=== PATIENT | male | born 1965 | race Caucasian/White ===

== ENCOUNTER 2017-04-14 01:35 | Inpatient (IN) | payer SELFPAY ==
--- NOTE | 2017-04-14 01:52 | PDOC ---
History of Present Illness - General Chief Complaint: Nausea/Vomiting Stated Complaint: NAUSEA, VOMITING Time Seen by Provider: 04/14/17 01:40 - History of Present Illness Initial Comments: 04/14/17 02:23 42-year-old male complaining nausea, vomiting, bloody stool 1 episode prior to arrival. Patient reports today has been feeling dizzy, and nausea. Patient reports he has a history of anemia (hemoglobin last 6), CVA 2016, htn, Hemorrhoids and hypercholesterolemia. Patient reports taking aspirin every day. patient reports tarry stools since starting iron tablets 2 months ago. patient denies chest pain, shortness of breath and fever. denies alcohol intake. Past History - Travel Traveled outside of the country in the last 30 days: Yes Close contact w/someone who was outside of country & ill: No - Past Medical History Allergies/Adverse Reactions: Allergies Allergy/AdvReac Type Severity Reaction Status Date / Time No Known Drug Allergies Allergy Verified 04/14/17 01:44 shrimp Allergy "VOMITING" Verified 04/14/17 01:44 Home Medications: Ambulatory Orders Aspirin [ASA -] 325 mg PO DAILY #30 tablet 06/24/16 Atorvastatin Ca [Lipitor] 80 mg PO HS #60 tablet 06/24/16 Isosorbide Mononitrate [Imdur -] 30 mg PO DAILY #30 tab.sr.24h 06/24/16 Nifedipine ER [Procardia XL -] 90 mg PO DAILY #30 tab.er.24 06/24/16 Ramipril [Altace] 20 mg PO DAILY #60 capsule 06/24/16 Labetalol HCl 100 mg PO TID #90 tablet 07/25/16 Carvedilol 25 mg PO BID 09/17/16 CVA: Yes (RT LEG SL WEAKNESS (3MONTHS AGO)) HTN: Yes Hypercholesterolemia: Yes Other medical history: hemorrhoids - Psycho/Social/Smoking Cessation Hx Anxiety: No Suicidal Ideation: No Smoking History: Never smoked Hx Alcohol Use: No Drug/Substance Use Hx: No Substance Use Type: None Hx Substance Use Treatment: No Review of Systems - Review of Systems Able to Perform ROS?: Yes Is the patient limited Maltese proficient: No Constitutional: Yes: Weakness ABD/GI: Yes: Blood Streaked Bowels, Diarrhea, Nausea, Vomiting, Tarry Stools. No: Symptoms Reported, See HPI, Abdominal Distended, Abd. Pain w/ defecation, Constipated, Difficulty Swallowing, Poor Appetite, Poor Fluid Intake, Rectal Bleeding, Indigestion, Abdominal cramping, Other : No: Symptoms Reported, See HPI, Burning, Dysuria, Discharge, Frequency, Flank Pain, Hematuria, Incontinence, Pain, Urgency, Testicular Mass, Testicular Swelling, Lesions, Testicular Pain, Other Musculoskeletal: No: Symptoms Reported, See HPI, Back Pain, Gout, Joint Pain, Joint Swelling, Muscle Pain, Muscle Weakness, Neck Pain, Joint Stiffness, Other *Physical Exam - Vital Signs 04/14/17 02:28 Last Vital Signs Temp Pulse Resp BP Pulse Ox 98.0 F 81 14 118/67 99 04/14/17 02:00 04/14/17 02:00 04/14/17 02:00 04/14/17 02:00 04/14/17 02:00 - Physical Exam General Appearance: Yes: Appropriately Dressed, Other (pale) Respiratory/Chest: positive: Lungs Clear, Normal Breath Sounds Cardiovascular: positive: Regular Rhythm, Regular Rate, Murmur Gastrointestinal/Abdominal: positive: Normal Bowel Sounds, Soft. 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 P: cbc cmp ferrsous type and screen IVF Medical Decision Making - Critical Care Time Total Critical Care Time (minutes): 90 Critical Care Statement: The care of this patient involved high complexity decision making to prevent further life threatening deterioration of the patient 's condition and/or to evalute & treat vital organ system(s) failure or risk of failure. - Medical Decision Making 04/14/17 03:03 Patient syncopal episode X1 in xray. vomited copious amount clotting blood. 04/14/17 03:56 Patient is pending admission for further management of GI bleed. Patient signed out to Dr. Watson (resident) / Dr. garcia. ICU accepted admission by Araceli Dumont. 04/14/17 03:57 Dr. Benavides (GI) paged. 04/14/17 04:[address] Benavides. recommends. abdominal US 2 units FFP Protonix drip Sandostatin 15 mcg X1 Sandostatin 50mcg/hr drip *DC/Admit/Observation/Transfer Diagnosis at time of Disposition: Gastrointestinal hemorrhage Qualifiers: GI bleed type/associated pathology: unspecified gastrointestinal hemorrhage type Qualified Code(s): K92.2 - Gastrointestinal hemorrhage, unspecified - Discharge Dispostion Admit: Yes - Referrals Referrals: Antonio Kevin MD [Primary Care Provider] -
[2017-04-14] MEDS ORDERED: SODIUM CHLORIDE 1,000 ML IV STA (02:07)
[2017-04-14 02:52] LABS: BASOPHIL 0.3 % (0-2.0); MCH 26.7 pg (25.7-33.7); MEAN CELL VOLUME 80.9 fl (80-96); MEAN PLT VOLUME 9.7 fl (7.5-11.1); PLATELET COUNT 169 K/MM3 (134-434); RDW 21.6 % (11.9-15.9); WHITE BLOOD COUNT 10.5 K/mm3 (4.0-10.0)
[2017-04-14] MEDS ORDERED: PANTOPRAZOLE SODIUM 40 MG in SODIUM CHLORIDE 100 ML IVPB ONE (03:00)
[2017-04-14 03:05] LABS: INR 1.62 (0.82-1.09)
[2017-04-14] MEDS ORDERED: PANTOPRAZOLE SODIUM 100 ML IVPB ONE (03:07)
[2017-04-14 03:16] LABS: ALBUMIN 2.3 g/dl (3.4-5.0); ANION GAP 7 (8-16); BILIRUBIN,TOTAL 0.4 mg/dL (0.2-1.0); CALCIUM 7.3 mg/dL (8.5-10.1); CO2 26 mmol/L (21-32); CREATININE 1.4 mg/dL (0.7-1.3); GLUCOSE,RANDOM 109 mg/dL (74-106); SGOT/AST 251 U/L (15-37); TOT PROT 4.5 g/dl (6.4-8.2)
[2017-04-14 03:17] LABS: ALK PHOS 67 U/L (45-117); TROPONIN I 0.02 ng/ml (0.00-0.05)
[2017-04-14 03:23] LABS: SGPT/ALT 401 U/L (12-78)
--- NOTE | 2017-04-14 03:54 | PN ---
Teaching Attending Note Name of Resident: Lilly Romero ATTENDING PHYSICIAN STATEMENT I saw and evaluated the patient. I reviewed the resident's note and discussed the case with the resident. I agree with the resident's findings and plan as documented. SUBJECTIVE: 51 yo M with pmhx of left thalamic stroke (16') and HTN who presents with vomiting and bloody stool. States he takes ASA daily and has noticed "dark" stools since taking iron. Of note pt. vomited blood clots as per ED and syncopized in ED. Pt. states that he vomited and had diarrhea, the vomit was red blood with clots and the diarrhea was dark black. OBJECTIVE: Physical: VS: Vital Signs Period Temp Pulse Resp BP Sys/Jaquez Pulse Ox Last 24 Hr 98.0 F 81 14 118/67 99 GEN: NAD, Resting in bed HEENT: NCAT, PERRL CARD: RRR S1, S2 KATEY II/ RESP: CTAB ABD: BS X4, NTD to palpation EXT: - C/C/E CBCD WBC 10.5 K/mm3 (4.0-10.0) H 04/14/17 02:36 RBC 2.04 M/mm3 (4.00-5.60) L D 04/14/17 02:36 Hgb 5.5 GM/dL (11.7-16.9) L* D 04/14/17 02:36 Hct 16.5 % (35.4-49) L D 04/14/17 02:36 MCV 80.9 fl (80-96) 04/14/17 02:36 MCHC 33.0 g/dl (32.0-35.9) 04/14/17 02:36 RDW 21.6 % (11.9-15.9) H D 04/14/17 02:36 Plt Count 169 K/MM3 (134-434) D 04/14/17 02:36 MPV 9.7 fl (7.5-11.1) D 04/14/17 02:36 CMP Sodium 141 mmol/L (136-145) 04/14/17 02:36 Potassium 4.2 mmol/L (3.5-5.1) 04/14/17 02:36 Chloride 108 mmol/L (98-107) H 04/14/17 02:36 Carbon Dioxide 26 mmol/L (21-32) 04/14/17 02:36 Anion Gap 7 (8-16) L 04/14/17 02:36 BUN 71 mg/dL (7-18) H D 04/14/17 02:36 Creatinine 1.4 mg/dL (0.7-1.3) H 04/14/17 02:36 Creat Clearance w eGFR 53.86 (>60) 04/14/17 02:36 Random Glucose 109 mg/dL (74-106) H 04/14/17 02:36 Calcium 7.3 mg/dL (8.5-10.1) L D 04/14/17 02:36 Total Bilirubin 0.4 mg/dL (0.2-1.0) 04/14/17 02:36 AST 251 U/L (15-37) H D 04/14/17 02:36 ALT 401 U/L (12-78) H D 04/14/17 02:36 Alkaline Phosphatase 67 U/L (45-117) D 04/14/17 02:36 Total Protein 4.5 g/dl (6.4-8.2) L D 04/14/17 02:36 Albumin 2.3 g/dl (3.4-5.0) L D 04/14/17 02:36 CARDIAC ENZYMES Creatine Kinase 57 IU/L (39-308) 04/14/17 02:36 Troponin I 0.02 ng/ml (0.00-0.05) 04/14/17 02:36 EKG: NSR no acute St-T changes CXR: Cardiomegaly Ambulatory Orders Aspirin [ASA -] 325 mg PO DAILY #30 tablet 06/24/16 Atorvastatin Ca [Lipitor] 80 mg PO HS #60 tablet 06/24/16 Isosorbide Mononitrate [Imdur -] 30 mg PO DAILY #30 tab.sr.24h 06/24/16 Nifedipine ER [Procardia XL -] 90 mg PO DAILY #30 tab.er.24 06/24/16 Ramipril [Altace] 20 mg PO DAILY #60 capsule 06/24/16 Labetalol HCl 100 mg PO TID #90 tablet 07/25/16 Carvedilol 25 mg PO BID 09/17/16 Place in ICU CC time 40 minutes ASSESSMENT AND PLAN: 51 M with pmhx of CVA and HTN presents with hematemsis and dark stools, found to be stool occult positive and to have anemia, will be admitted for GI bleed. 1.) GI Bleed Upper - Sandostatin Bolus and Drip - FFP 2U increased inr - PPI gtt - NPO - PRBC keep Hgb >7.0 - Type and Screen - GI consulted and reccomendations taken - 2 Large Bore IVs 2.) Transaminitis /inc. INR - FFP - Abdominal US - Hepatitis panel 3.) Anemia, normocytic - 2 U prbcs - FU Iron studies 4.) CVA - Hold ASA - Hold Statin 5.) HTN - Hold BP meds for now 6.) Dvt PPx - Low Risk SCDs CC TIME 45 minutes Admit to ICU, Case discussed with tunnel man
[2017-04-14] MEDS ORDERED: OCTREOTIDE ACETATE 50 MCG/1 ML - 1 ML VIAL IVPUSH ONE (04:28)
[2017-04-14] MEDS ORDERED: OCTREOTIDE ACETATE 1,200 MCG in DEXTROSE 5%-WATER - 488 ML IVPB SCH (04:30)
[2017-04-14] MEDS: PANTOPRAZOLE SODIUM 80 MG in SODIUM CHLORIDE 100 ML IVPB SCH ×2 (05:00→14:30)
--- NOTE | 2017-04-14 05:07 | HP ---
HISTORY OF PRESENT ILLNESS: Patient is a 51 year old male with a PMHx of uncontrolled HTN (on 5 medications ) left thalmic stroke (2015) who presented after vomiting a large amount of dark blood with an episode of dark bloody stool at the same time, both described as the color black. In the ED patient had one episode of bright red bloody vomit with clots and then syncopized right after. Patient reports daily aspirin use since his stroke last year but denies any NSAID use. Patient never had similar episodes in the past and never had an EGD or colonoscopy. Otherwise , patient denies fever, chills, abdominal pain, chest pain, palpitations, shortness of breath, headache. PHYSICAL EXAMINATION Vital Signs - 24 hr 04/14/17 04/14/17 02:00 03:57 Temperature 98.0 F 98.4 F Pulse Rate 81 Pulse Rate [ 80 Apical] Respiratory 14 20 Rate Blood Pressure 118/67 Blood Pressure 117/69 [Right Arm] O2 Sat by Pulse 99 99 Oximetry (%) GENERAL: Awake, alert, and fully oriented, in no acute distress. EYES: Conjunctival pallor. EARS, NOSE, THROAT: Moist mucous membranes. LUNGS: Breath sounds equal, clear to auscultation bilaterally. No wheezes, and no crackles. No accessory muscle use. HEART: Regular rate and rhythm, normal S1 and S2 without murmur, rub or gallop. ABDOMEN: Soft, nontender, not distended, normoactive bowel sounds, no guarding, no rebound, no masses. No hepatomegaly or splenomegaly. LOWER EXTREMITIES: No peripheral edema. Laboratory Results - last 24 hr 04/14/17 04/14/17 04/14/17 02:15 02:36 02:36 WBC 10.5 H RBC 2.04 L D Hgb 5.5 L* D Hct 16.5 L D MCV 80.9 MCH 26.7 MCHC 33.0 RDW 21.6 H D Plt Count 169 D MPV 9.7 D Neutrophils % 76.0 Lymphocytes % 15.5 D Monocytes % 7.2 D Eosinophils % 1.0 Basophils % 0.3 Retic Count 1.31 INR 1.62 H D Sodium Potassium Chloride Carbon Dioxide Anion Gap BUN Creatinine Creat Clearance w eGFR Random Glucose Calcium Total Bilirubin AST ALT Alkaline Phosphatase Creatine Kinase Troponin I Total Protein Albumin Stool Occult Blood Positive Blood Type Antibody Screen Crossmatch 04/14/17 04/14/17 04/14/17 02:36 02:36 02:36 WBC RBC Hgb Hct MCV MCH MCHC RDW Plt Count MPV Neutrophils % Lymphocytes % Monocytes % Eosinophils % Basophils % Retic Count INR Sodium 141 Potassium 4.2 Chloride 108 H Carbon Dioxide 26 Anion Gap 7 L BUN 71 H D Creatinine 1.4 H Creat Clearance w eGFR 53.86 Random Glucose 109 H Calcium 7.3 L D Total Bilirubin 0.4 AST 251 H D ALT 401 H D Alkaline Phosphatase 67 D Creatine Kinase 57 Troponin I 0.02 Total Protein 4.5 L D Albumin 2.3 L D Stool Occult Blood Blood Type O POSITIVE Antibody Screen Negative Crossmatch See Detail 04/14/17 03:25 WBC RBC Hgb Hct MCV MCH MCHC RDW Plt Count MPV Neutrophils % Lymphocytes % Monocytes % Eosinophils % Basophils % Retic Count INR Sodium Potassium Chloride Carbon Dioxide Anion Gap BUN Creatinine Creat Clearance w eGFR Random Glucose Calcium Total Bilirubin AST ALT Alkaline Phosphatase Creatine Kinase Troponin I Total Protein Albumin Stool Occult Blood Blood Type O POSITIVE Antibody Screen Negative Crossmatch Chest X-ray (04/14/17): Cardiomegaly. No acute pathology ASSESSMENT/PLAN: Patient is a 51 year old male with a PMHx of uncontrolled HTN (on 5 medications ) left thalmic stroke (2015) who was brought in for dark bloody vomit and stool. In the ED patient had an episode of bright red vomit with clots. Patient admitted for further monitoring and management. GI BLEED -Likely upper. Will need EGD/Colonoscopy -Type and screen, coags, type and screen -2 FFP as patients INR is elevated -Octeotride bolus and drip ordered -Protonix drip -2 large bore IV's -Hold any antiplatelets or anticoagulations -NPO -GI consult placed and recommendations appreciated Normocytic Anemia -2 units PRBC ordered -Iron studies sent Transaminitis -Abdominal U/S ordered -Hepatitis Panel ordered History of CVA (2016) -Hold Aspirin and Statin HTN -Hold meds due to hypotension Prophylaxis -SCD's for DVT -Protonix drip for GI Disposition -Full code -Admit to Med/Surg. Awaiting GI Visit type - Emergency Visit Emergency Visit: Yes ED Registration Date: 04/14/17 Care time: The patient presented to the Emergency Department on the above date and was hospitalized for further evaluation of their emergent condition. - New Patient This patient is new to me today: Yes Date on this admission: 04/14/17 - Critical Care Critical Care patient: No
--- NOTE | 2017-04-14 05:09 | HP ---
CHIEF COMPLAINT: nausea and vomiting of blood . PCP: HISTORY OF PRESENT ILLNESS: 42 year old male with PMH of HTN, HLD, anemia, stroke(9 months ago), asthma, hemorrhoids who presented to the ED with nausea and vomiting of huge amount of ground coffee blood that started suddenly last night around 9 am associated with maroon blood in the stool. Patient reports one week history of fatigue, lightheadedness, dizziness. He complains of constipation due to iron intake. Patient reports taking aspirin 325 mg daily since the stroke.He reports swelling in his legs for the past week, chronic history of back pain but not on any NSAIDS.He denies use of ETOH He denies any abdominal pain, chest pain, SOB, palpitation, cough, headache, or any urinary symptoms. IN the Ed patient had another episode of bright red bloody vomit and he fainted after that. ER course was notable for: (1) EKG , NSR (2) CXR cardiomegaly (3)2 episode of vomiting blood with syncope. Recent Travel:NO PAST MEDICAL HISTORY: HTN, HLD, anemia, stroke(9 months ago), asthma, hemorrhoids PAST SURGICAL HISTORY:None Social History: Smoking:None Alcohol: quit one years ago after the stoke, used to drink 1-2 beers. Drugs: None Family History: Allergies No Known Drug Allergies Allergy (Verified 04/14/17 01:44) shrimp Allergy (Verified 04/14/17 01:44) "VOMITING" HOME MEDICATIONS: Home Medications Medication Instructions Recorded Aspirin [ASA -] 325 mg PO DAILY #30 tablet 06/24/16 Atorvastatin Ca [Lipitor] 80 mg PO HS #60 tablet 06/24/16 Isosorbide Mononitrate [Imdur -] 30 mg PO DAILY #30 tab.sr.24h 06/24/16 Nifedipine ER [Procardia XL -] 90 mg PO DAILY #30 tab.er.24 06/24/16 Ramipril [Altace] 20 mg PO DAILY #60 capsule 06/24/16 Labetalol HCl 100 mg PO TID #90 tablet 07/25/16 Carvedilol 25 mg PO BID 09/17/16 Current Medications Generic Name Dose Route Start Last Admin Trade Name Freq PRN Reason Stop Dose Admin Chlorhexidine Gluconate 1 applic 04/14/17 22:00 Hibiclens For Decolonization - TP HS MARIA DOLORES Pantoprazole Sodium 80 mg/ 100 mls @ 10 mls/hr 04/14/17 04:00 04/14/17 05:00 Sodium Chloride IVPB 10 mls/hr Q10H MARIA DOLORES Administration 8 MG/HR Octreotide Acetate 1,200 mcg/ 500 mls @ 20.83 mls/hr 04/14/17 04:30 04/14/17 05 :25 Dextrose IVPB 20.83 mls/hr ASDIR MARIA DOLORES Administration 50 MCG/HR Mupirocin 1 applic 04/14/17 10:00 Bactroban Ointment (For Decolonization) - NS 04/19/17 09:59 BID MARIA DOLORES REVIEW OF SYSTEMS CONSTITUTIONAL: Absent: fever, chills, diaphoresis, generalized weakness, malaise, loss of appetite, weight change HEENT: Absent: rhinorrhea, nasal congestion, throat pain, throat swelling, difficulty swallowing, mouth swelling, ear pain, eye pain, visual changes CARDIOVASCULAR: Absent: chest pain, syncope, palpitations, irregular heart rate, lightheadedness , peripheral edema RESPIRATORY: Absent: cough, shortness of breath, dyspnea with exertion, orthopnea, wheezing, stridor, hemoptysis GASTROINTESTINAL: Absent: abdominal pain, abdominal distension, nausea, vomiting, diarrhea, constipation, melena, hematochezia GENITOURINARY: Absent: dysuria, frequency, urgency, hesitancy, hematuria, flank pain, genital pain MUSCULOSKELETAL: Absent: myalgia, arthralgia, joint swelling, back pain, neck pain SKIN: Absent: rash, itching, pallor HEMATOLOGIC/IMMUNOLOGIC: Absent: easy bleeding, easy bruising, lymphadenopathy, frequent infections ENDOCRINE: Absent: unexplained weight gain, unexplained weight loss, heat intolerance, cold intolerance NEUROLOGIC: Absent: headache, focal weakness or paresthesias, dizziness, unsteady gait, seizure, mental status changes, bladder or bowel incontinence PSYCHIATRIC: Absent: anxiety, depression, suicidal or homicidal ideation, hallucinations. PHYSICAL EXAMINATION Vital Signs - 24 hr 04/14/17 04/14/17 02:00 03:57 Temperature 98.0 F 98.4 F Pulse Rate 81 Pulse Rate [ 80 Apical] Respiratory 14 20 Rate Blood Pressure 118/67 Blood Pressure 117/69 [Right Arm] O2 Sat by Pulse 99 99 Oximetry (%) GENERAL: Awake, alert, and fully oriented, in no acute distress. HEAD: Normal with no signs of trauma. EYES: Pupils equal, round and reactive to light, extraocular movements intact, sclera anicteric, conjunctiva clear. No lid lag. EARS, NOSE, THROAT: Ears normal, nares patent, oropharynx clear without exudates. Moist mucous membranes. NECK: Normal range of motion, supple without lymphadenopathy, JVD, or masses. LUNGS: Breath sounds equal, clear to auscultation bilaterally. No wheezes, and no crackles. No accessory muscle use. HEART: Regular rate and rhythm, normal S1 and S2 without murmur, rub or gallop. ABDOMEN: Soft, nontender, not distended, normoactive bowel sounds, no guarding, no rebound, no masses. No hepatomegaly or splenomegaly. MUSCULOSKELETAL: Normal range of motion at all joints. No bony deformities or tenderness. No CVA tenderness. UPPER EXTREMITIES: 2+ pulses, warm, well-perfused. No cyanosis. No clubbing. No peripheral edema. LOWER EXTREMITIES: 2+ pulses, warm, well-perfused. No calf tenderness. No peripheral edema. NEUROLOGICAL: Cranial nerves II-XII intact. Normal speech. PSYCHIATRIC: Cooperative. Good eye contact. Appropriate mood and affect. SKIN: Warm, dry, normal turgor, no rashes or lesions noted, normal capillary refill. Laboratory Results - last 24 hr 04/14/17 04/14/17 04/14/17 02:15 02:36 02:36 WBC 10.5 H RBC 2.04 L D Hgb 5.5 L* D Hct 16.5 L D MCV 80.9 MCH 26.7 MCHC 33.0 RDW 21.6 H D Plt Count 169 D MPV 9.7 D Neutrophils % 76.0 Lymphocytes % 15.5 D Monocytes % 7.2 D Eosinophils % 1.0 Basophils % 0.3 Retic Count 1.31 INR 1.62 H D Sodium Potassium Chloride Carbon Dioxide Anion Gap BUN Creatinine Creat Clearance w eGFR Random Glucose Calcium Total Bilirubin AST ALT Alkaline Phosphatase Creatine Kinase Troponin I Total Protein Albumin Stool Occult Blood Positive Blood Type Antibody Screen Crossmatch 04/14/17 04/14/17 04/14/17 02:36 02:36 02:36 WBC RBC Hgb Hct MCV MCH MCHC RDW Plt Count MPV Neutrophils % Lymphocytes % Monocytes % Eosinophils % Basophils % Retic Count INR Sodium 141 Potassium 4.2 Chloride 108 H Carbon Dioxide 26 Anion Gap 7 L BUN 71 H D Creatinine 1.4 H Creat Clearance w eGFR 53.86 Random Glucose 109 H Calcium 7.3 L D Total Bilirubin 0.4 AST 251 H D ALT 401 H D Alkaline Phosphatase 67 D Creatine Kinase 57 Troponin I 0.02 Total Protein 4.5 L D Albumin 2.3 L D Stool Occult Blood Blood Type O POSITIVE Antibody Screen Negative Crossmatch See Detail 04/14/17 03:25 WBC RBC Hgb Hct MCV MCH MCHC RDW Plt Count MPV Neutrophils % Lymphocytes % Monocytes % Eosinophils % Basophils % Retic Count INR Sodium Potassium Chloride Carbon Dioxide Anion Gap BUN Creatinine Creat Clearance w eGFR Random Glucose Calcium Total Bilirubin AST ALT Alkaline Phosphatase Creatine Kinase Troponin I Total Protein Albumin Stool Occult Blood Blood Type O POSITIVE Antibody Screen Negative Crossmatch ASSESSMENT/PLAN: 42 year old male with PMH of HTN, HLD, anemia, stroke(9 months ago), asthma, hemorrhoids who presented to the ED with nausea and vomiting of huge amount of ground coffee blood(hematemesis) and dark stools, found to have a positive occult blood and anemia, he was admitted for GI bleed evaluation and treatment. #GI bleed most likely upper * Sandostatin Bolus and Drip * Octreotide till varices rulled out * FFP 2U due to increased INR * NPO * 2 units PRBC keep Hgb >7.0 * FFP, Vit K to correct INR * Type and Screen, coagulations * GI consult * 2 Large Bore IVs * EGD within 24 hours * Protonix drip * Serial CBC, Coag # Transaminitis * AST 251/ALT 401 * Abdominal US * Hepatitis panel * FFP , vit K * Repeat CMP # Anemia, normocytic likely 2/2 GI bleed * H/H 5.5/16.5 * Iron studies * transfuse 2 units PRBC * F/U H/H * repeat CBC, CMP after transfusion * * # AKD likely 2/2 hypovolemia * Cr 1.4 * repeat after transfusion # HTN * Hold home meds due to low BP * F/U BP * restart home meds for bp >140/90 * * # H/O CVA 2015 * left thalamic stoke * Hold statin * Hold ASA * * # Prophylaxis * Protonix for GI * SCDs for DVT * * #Dispo * Full code * Admit to ICU * CC 45 min * * Visit type - Emergency Visit Emergency Visit: Yes ED Registration Date: 04/14/17 Care time: The patient presented to the Emergency Department on the above date and was hospitalized for further evaluation of their emergent condition. - New Patient This patient is new to me today: Yes Date on this admission: 04/14/17 - Critical Care Critical Care patient: Yes Total Critical Care Time (in minutes): 45 Critical Care Statement: The care of this patient involved high complexity decision making to prevent further life threatening deterioration of the patient 's condition and/or to evalute & treat vital organ system(s) failure or risk of failure.
[2017-04-14 05:30] VITALS: BMI 21.5
--- NOTE | 2017-04-14 05:35 | CONSULT ---
Consult Consult Specialty:: PULM/CCM - History of Present Illness Chief Complaint: Weakness, hematemesis History of Present Illness: 51 yo M with pmhx of HTN, left thalamic stroke (2016) and anemia who presents with hematemesis and dark colored diarrhea. In the ED he again vomited blood clots and syncopized. As per pt he has been feeling weak for a few days and lightheaded since yesterday. He takes aspirin 325 at home after stroke. He denies ETOH use and smoking. In the ED he was 98.4, hemodynamically stable but again vomited clots and syncopized. Labs notable for hgb 5.5, WBC 10.5, Plt 169, trop<0.02, BUN/Creat 71 /1.4INR 1.6, AST/ALT 251/401, Bili wnl. 2-18G and 1-20G jayda IV were placed. He was transferred to ICU for management. Call made to GI service. In ICU A+O x3, afebrile, BP 128/78,hr 95, rr21 O2sat 100% on room air. He denies abd pain, nausea. Protonix and octreotide drips started. 1U PRBC started. 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 (?PEN) monthly for several months) - Past Surgical History Past Surgical History: Yes: None - Alcohol/Substance Use Hx Alcohol Use: No - Smoking History Smoking history: Never smoked Have you smoked in the past 12 months: No Home Medications - Allergies Allergies/Adverse Reactions: Allergies Allergy/AdvReac Type Severity Reaction Status Date / Time No Known Drug Allergies Allergy Verified 04/14/17 01:44 shrimp Allergy "VOMITING" Verified 04/14/17 01:44 - Home Medications Home Medications: Ambulatory Orders Aspirin [ASA -] 325 mg PO DAILY #30 tablet 06/24/16 Atorvastatin Ca [Lipitor] 80 mg PO HS #60 tablet 06/24/16 Isosorbide Mononitrate [Imdur -] 30 mg PO DAILY #30 tab.sr.24h 06/24/16 Nifedipine ER [Procardia XL -] 90 mg PO DAILY #30 tab.er.24 06/24/16 Ramipril [Altace] 20 mg PO DAILY #60 capsule 06/24/16 Labetalol HCl 100 mg PO TID #90 tablet 07/25/16 Carvedilol 25 mg PO BID 09/17/16 Family Disease History - Family Disease History Family History: Unremarkable Family Disease History: Diabetes: Father Review of Systems - Review of Systems Constitutional: reports: Weakness Eyes: reports: No Symptoms HENT: reports: No Symptoms Neck: reports: No Symptoms Cardiovascular: reports: Palpitations Respiratory: reports: No Symptoms Gastrointestinal: reports: Diarrhea, Vomiting Blood Genitourinary: reports: No Symptoms Breasts: reports: No Symptoms Reported Musculoskeletal: reports: Joint Pain Integumentary: reports: No Symptoms Neurological: reports: No Symptoms Endocrine: reports: No Symptoms Hematology/Lymphatic: reports: No Symptoms Psychiatric: reports: No Symptoms Physical Exam Vital Signs: Vital Signs Temperature 98.4 F 04/14/17 03:57 Pulse Rate 80 04/14/17 03:57 Respiratory Rate 20 04/14/17 03:57 Blood Pressure 117/69 04/14/17 03:57 O2 Sat by Pulse Oximetry (%) 99 04/14/17 03:57 Constitutional: Yes: Well Nourished, Calm Eyes: Yes: Conjunctiva Clear, Cataracts (removed), PERRL HENT: Yes: Atraumatic, Normocephalic Neck: Yes: Supple, Trachea Midline Cardiovascular: Yes: Regular Rate and Rhythm, Murmur (3/6 holsystolic murmur) Respiratory: Yes: Regular, CTA Bilaterally Gastrointestinal: Yes: Soft, Hypoactive Bowel Sounds Renal/: Yes: WNL Breast(s): Yes: WNL Musculoskeletal: Yes: WNL Extremities: Yes: WNL Edema: No Peripheral Pulses WNL: Yes Integumentary: Yes: WNL ...Motor Strength: WNL Psychiatric: Yes: WNL, Alert, Oriented Labs: CBC,CMP WBC 10.5 K/mm3 (4.0-10.0) H 04/14/17 02:36 RBC 2.04 M/mm3 (4.00-5.60) L D 04/14/17 02:36 Hgb 5.5 GM/dL (11.7-16.9) L* D 04/14/17 02:36 Hct 16.5 % (35.4-49) L D 04/14/17 02:36 MCV 80.9 fl (80-96) 04/14/17 02:36 MCH 26.7 pg (25.7-33.7) 04/14/17 02:36 MCHC 33.0 g/dl (32.0-35.9) 04/14/17 02:36 RDW 21.6 % (11.9-15.9) H D 04/14/17 02:36 Plt Count 169 K/MM3 (134-434) D 04/14/17 02:36 MPV 9.7 fl (7.5-11.1) D 04/14/17 02:36 Neutrophils % 76.0 % (42.8-82.8) 04/14/17 02:36 Lymphocytes % 15.5 % (8-40) D 04/14/17 02:36 Monocytes % 7.2 % (3.8-10.2) D 04/14/17 02:36 Eosinophils % 1.0 % (0-4.5) 04/14/17 02:36 Basophils % 0.3 % (0-2.0) 04/14/17 02:36 Retic Count 1.31 % (0.5-1.5) 04/14/17 02:36 Sodium 141 mmol/L (136-145) 04/14/17 02:36 Potassium 4.2 mmol/L (3.5-5.1) 04/14/17 02:36 Chloride 108 mmol/L (98-107) H 04/14/17 02:36 Carbon Dioxide 26 mmol/L (21-32) 04/14/17 02:36 Anion Gap 7 (8-16) L 04/14/17 02:36 BUN 71 mg/dL (7-18) H D 04/14/17 02:36 Creatinine 1.4 mg/dL (0.7-1.3) H 04/14/17 02:36 Creat Clearance w eGFR 53.86 (>60) 04/14/17 02:36 Random Glucose 109 mg/dL (74-106) H 04/14/17 02:36 Calcium 7.3 mg/dL (8.5-10.1) L D 04/14/17 02:36 Total Bilirubin 0.4 mg/dL (0.2-1.0) 04/14/17 02:36 AST 251 U/L (15-37) H D 04/14/17 02:36 ALT 401 U/L (12-78) H D 04/14/17 02:36 Alkaline Phosphatase 67 U/L (45-117) D 04/14/17 02:36 Creatine Kinase 57 IU/L (39-308) 04/14/17 02:36 Troponin I 0.02 ng/ml (0.00-0.05) 04/14/17 02:36 Total Protein 4.5 g/dl (6.4-8.2) L D 04/14/17 02:36 Albumin 2.3 g/dl (3.4-5.0) L D 04/14/17 02:36 Assessment/Plan 51 yo M with pmhx of HTN, left thalamic stroke (2015) and anemia who presents with hematemesis and dark colored diarrhea. In the ED he again vomited blood clots and syncopized. He takes aspirin 325mg at home after stroke. He denies ETOH use and smoking. Upper GIB m/l in setting of Aspirin use. Elevated AST, ALT and INR raises c/f liver dysfunction. Plan: GI/Heme:UGIB -GI consult for endoscopy -Maintain large bore IV -Protonix drip -Octreotide drip until varices are rulled out -Transfuse PRBC for Hgb>7 -FFP and vit K to correct INR -Serial CBC, coags -NPO for now -Monitor LFTs -Adequate hydration Proph: Ritika
[2017-04-14 07:27] LABS: ANISOCYTOSIS 2+; PLATELET ESTIMATE ADEQUATE (NORMAL)
[2017-04-14 07:28] LABS: SPHEROCYTE 1+
[2017-04-14] MEDS ORDERED: MUPIROCIN 2% TOPICAL OINTMENT FOR DECOLONIZATION NS SCH ×2 (10:00→22:00)
[2017-04-14 10:16] LABS: MCH 27.9 pg (25.7-33.7); MCHC 33.8 g/dl (32.0-35.9); MEAN CELL VOLUME 82.5 fl (80-96); MEAN PLT VOLUME 10.4 fl (7.5-11.1); PLATELET COUNT 111 K/MM3 (134-434); WHITE BLOOD COUNT 10.7 K/mm3 (4.0-10.0)
[2017-04-14 10:36] LABS: ALBUMIN 1.9 g/dl (3.4-5.0); ALK PHOS 50 U/L (45-117); ANION GAP 8 (8-16); BILIRUBIN,TOTAL 0.8 mg/dL (0.2-1.0); CALCIUM 7.1 mg/dL (8.5-10.1); CO2 24 mmol/L (21-32); CREATININE 1.6 mg/dL (0.7-1.3); GLUCOSE,RANDOM 142 mg/dL (74-106); SGOT/AST 207 U/L (15-37); SGPT/ALT 321 U/L (12-78); TOT PROT 3.7 g/dl (6.4-8.2)
[2017-04-14 11:00] LABS: AMYLASE 36 U/L (25-115)
--- NOTE | 2017-04-14 14:07 | EKG ---
Test Reason : Blood Pressure : / mmHG Vent. Rate : 078 BPM Atrial Rate : 078 BPM P-R Int : 146 ms QRS Dur : 082 ms QT Int : 404 ms P-R-T Axes : 076 039 037 degrees QTc Int : 460 ms NORMAL SINUS RHYTHM NORMAL ECG WHEN COMPARED WITH ECG OF 25-JUL-2016 17:02, NONSPECIFIC T WAVE ABNORMALITY NO LONGER EVIDENT IN LATERAL LEADS Confirmed by SARINA PRESSLEY MD ([id number]) on 04/14/2017 2:06:29 PM Referred By: Confirmed By:SARINA PRESSLEY MD
--- NOTE | 2017-04-14 15:21 | PN ---
Physical Exam: SUBJECTIVE: Patient seen and examined OBJECTIVE: Vital Signs Period Temp Pulse Resp BP Sys/Jaquez Pulse Ox Last 24 Hr 98.4 F-99.8 F 68-114 15-25 93-152/58-87 82-100 GENERAL: The patient is awake, alert, and fully oriented, in no acute distress. HEAD: Normal with no signs of trauma. EYES: PERRL, extraocular movements intact, sclera anicteric, conjunctiva clear. No ptosis. ENT: Ears normal, nares patent, oropharynx clear without exudates, moist mucous membranes. NECK: Trachea midline, full range of motion, supple. LUNGS: Breath sounds equal, clear to auscultation bilaterally, no wheezes, no crackles, no accessory muscle use. HEART: Regular rate and rhythm, S1, S2 without murmur, rub or gallop. ABDOMEN: Soft, nontender, nondistended, normoactive bowel sounds, no guarding, no rebound, no hepatosplenomegaly, no masses. EXTREMITIES: 2+ pulses, warm, well-perfused, no edema. NEUROLOGICAL: Cranial nerves II through XII grossly intact. Normal speech, gait not observed. PSYCH: Normal mood, normal affect. SKIN: Warm, dry, normal turgor, no rashes or lesions noted Laboratory Results - last 24 hr 04/14/17 04/14/17 04/14/17 05:10 05:10 05:31 WBC RBC Hgb Hct MCV MCH MCHC RDW Plt Count MPV PTT (Actin FS) 26.8 L Sodium Potassium Chloride Carbon Dioxide Anion Gap BUN Creatinine Creat Clearance w eGFR Random Glucose Lactic Acid 1.8 Calcium Ferritin 53.919 Total Bilirubin AST ALT Alkaline Phosphatase Total Protein Albumin Total Amylase Hepatitis C Antibody 04/14/17 04/14/17 04/14/17 08:45 10:00 10:00 WBC 10.7 H RBC 1.69 L Hgb 4.7 L* D Hct 13.9 L MCV 82.5 MCH 27.9 MCHC 33.8 RDW 19.0 H D Plt Count 111 L D MPV 10.4 PTT (Actin FS) Sodium 144 Potassium 4.5 Chloride 112 H Carbon Dioxide 24 Anion Gap 8 BUN 69 H Creatinine 1.6 H Creat Clearance w eGFR 46.17 Random Glucose 142 H D Lactic Acid Calcium 7.1 L Ferritin Total Bilirubin 0.8 D AST 207 H ALT 321 H Alkaline Phosphatase 50 D Total Protein 3.7 L Albumin 1.9 L Total Amylase 36 Hepatitis C Antibody Cancelled 04/14/17 10:00 WBC RBC Hgb Hct MCV MCH MCHC RDW Plt Count MPV PTT (Actin FS) Sodium Potassium Chloride Carbon Dioxide Anion Gap BUN Creatinine Creat Clearance w eGFR Random Glucose Lactic Acid Calcium Ferritin Total Bilirubin AST ALT Alkaline Phosphatase Total Protein Albumin Total Amylase Cancelled Hepatitis C Antibody Active Medications Generic Name Dose Route Start Last Admin Trade Name Ananya PRN Reason Stop Dose Admin Chlorhexidine Gluconate 1 applic 04/14/17 22:00 Hibiclens For Decolonization - TP HS MARIA DOLORES Pantoprazole Sodium 80 mg/ 100 mls @ 10 mls/hr 04/14/17 04:00 04/14/17 05:00 Sodium Chloride IVPB 10 mls/hr Q10H MARIA DOLORES Administration 8 MG/HR Octreotide Acetate 1,200 mcg/ 500 mls @ 20.83 mls/hr 04/14/17 04:30 04/14/17 05 :25 Dextrose IVPB 20.83 mls/hr ASDIR MARIA DOLORES Administration 50 MCG/HR Mupirocin 1 applic 04/14/17 10:00 04/14/17 12:02 Bactroban Ointment (For Decolonization) - NS 04/19/17 09:59 1 applic BID MARIA DOLORES Administration ASSESSMENT/PLAN: 42 year old male who with PMH of HTN, HLD, anemia, stroke, hemorrhoids who presented to the ED with nausea and vomiting of coffee ground emesis and melena. He has had two episodes of vomiting since admission and was transferred to the ICU for further management. Neuro -A&O x3 -Dizziness and lightheadedness 2/2 severe anemia Abdominal -3 episodes coffee ground emesis and clots and 2x episodes of melena -H&H on admission 5.5, UGIB -s/p 4 units PRBCs this admission -will give 2 units FFP 2/2 elevated INR -pt endorses several days of heavy aspirin use -will give 2 units of platelets -GI (Lantin) onboard; patient is for EGD today FEN -no indication for fluids at this time as patient is receiving blood products -will continue to monitor electrolytes -NPO Prophylaxsis -protonix 80 IV Dispo -continue to monitor in ICU Problem List - Problems (1) GI bleed Code(s): K92.2 - GASTROINTESTINAL HEMORRHAGE, UNSPECIFIED Qualifiers: GI bleed type/associated pathology: unspecified gastrointestinal hemorrhage type Qualified Code(s): K92.2 - Gastrointestinal hemorrhage, unspecified (2) Hypertension Code(s): I10 - ESSENTIAL (PRIMARY) HYPERTENSION Qualifiers: Hypertension type: essential hypertension Qualified Code(s): I10 - Essential (primary) hypertension (3) Hematemesis with nausea Code(s): K92.0 - HEMATEMESIS R11.0 - NAUSEA (4) Melena Code(s): K92.1 - MELENA Visit type - Emergency Visit Emergency Visit: Yes ED Registration Date: 04/14/17 Care time: The patient presented to the Emergency Department on the above date and was hospitalized for further evaluation of their emergent condition. - New Patient This patient is new to me today: Yes Date on this admission: 04/14/17 - Critical Care Critical Care patient: Yes Total Critical Care Time (in minutes): 40 Critical Care Statement: The care of this patient involved high complexity decision making to prevent further life threatening deterioration of the patient 's condition and/or to evalute & treat vital organ system(s) failure or risk of failure.
--- NOTE | 2017-04-14 15:26 | HOSP ---
Subjective - Review of Symptoms Subjective: Pt seen and examined in ICU. He denies dizziness, sob. He did have a large episode of hematemsis and hematochezia. He is receiving blood product Physical Examination Vital Signs: Vital Signs Temperature 99.8 F H 04/14/17 15:00 Pulse Rate 68 04/14/17 15:00 Respiratory Rate 16 04/14/17 15:00 Blood Pressure 152/87 04/14/17 15:00 O2 Sat by Pulse Oximetry (%) 100 04/14/17 15:09 Constitutional: Yes: Calm Eyes: Yes: Conjunctiva Clear Neck: Yes: Supple Cardiovascular: Yes: Regular Rate and Rhythm, S1, S2 Respiratory: Yes: Regular, CTA Bilaterally Gastrointestinal: Yes: Normal Bowel Sounds, Soft ...Rectal Exam: Yes: Guaiac Positive, Hemorrhoids/External Edema: No Neurological: Yes: Alert, Oriented, Cran Nerves II-XII Intact Labs: CBC, BMP 04/14/17 10:00 04/14/17 10:00 Hospitalist Encounter Assessment: Assessment: 51 year old male with pmhx, HTN, HLD, CVA admitted with acute upper and lower GI bleed Plan: 1. Acute blood loss anemia d/t GI bleed - 5 units pack cells to be transfused - 2 units platelets - 2 units FFP - For EGD this afternoon with GI - Monitor hgb - Protonix gtt 2. HTN - Hold BP meds for now (labetalol, procardia ramipril) 3. hx CVA - Left thalamic cva 2016 - Stop ASA - Hold statin 4. ? liver disease - Pt denies etoh - Trend liver enzymes - Hep panel pending - Vit K given for elevated INR 5. MARIA TERESA - Like pre renal from blood loss - Monitor
[2017-04-14 15:39] LABS: INR 1.68 (0.82-1.09); PROTHROMBIN TIME (PATIENT) 18.7 SEC (9.98-11.88)
--- NOTE | 2017-04-14 17:16 | CON.GI ---
Consult Consult Specialty:: gastroenterology Referred by:: hsopitalist - History of Present Illness History of Present Illness: 51 y/o male with PMH of CVA was doing well until last night when he developed hematemesis and dark colored diarrhea which was about 9pm last night. In the er , he had the same episode. He is on Aspirin 325mg daily since the stroke. In the ER , his hgb was 5 associated with markedly elevated LFTS. He was tachycardic but denies chest pain, SOB and syncope. 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 (?PEN) monthly for several months) - Past Surgical History Past Surgical History: Yes: None - Alcohol/Substance Use Hx Alcohol Use: No - Smoking History Smoking history: Never smoked Have you smoked in the past 12 months: No Home Medications - Allergies Allergies/Adverse Reactions: Allergies Allergy/AdvReac Type Severity Reaction Status Date / Time No Known Drug Allergies Allergy Verified 04/14/17 01:44 shrimp Allergy "VOMITING" Verified 04/14/17 01:44 - Home Medications Home Medications: Ambulatory Orders Aspirin [ASA -] 325 mg PO DAILY #30 tablet 06/24/16 Atorvastatin Ca [Lipitor] 80 mg PO HS #60 tablet 06/24/16 Isosorbide Mononitrate [Imdur -] 30 mg PO DAILY #30 tab.sr.24h 06/24/16 Nifedipine ER [Procardia XL -] 90 mg PO DAILY #30 tab.er.24 06/24/16 Ramipril [Altace] 20 mg PO DAILY #60 capsule 06/24/16 Labetalol HCl 100 mg PO TID #90 tablet 07/25/16 Carvedilol 25 mg PO BID 09/17/16 Family Disease History - Family Disease History Family Disease History: Diabetes: Father Review of Systems - Review of Systems Constitutional: denies: Fever Eyes: denies: Blind Spots HENT: denies: Difficult Swallowing Neck: denies: Decreased ROM Cardiovascular: denies: Chest Pain Respiratory: denies: Exercise Intolerance Gastrointestinal: reports: Vomiting Blood. denies: Bloating, Constipation, Diarrhea, Dysphagia, Rectal Bleeding Physical Exam-GI Vital Signs: Vital Signs Temperature 99.0 F 04/14/17 16:00 Pulse Rate 78 04/14/17 16:00 Respiratory Rate 19 04/14/17 16:00 Blood Pressure 143/91 04/14/17 16:00 O2 Sat by Pulse Oximetry (%) 100 04/14/17 15:09 Constitutional: Yes: Well Nourished Eyes: Yes: Conjunctiva Clear HENT: Yes: Atraumatic Neck: Yes: Supple Respiratory: Yes: CTA Bilaterally ...Palpate: Yes: Soft. No: Firm/Rigid, Guarding, Hepatomegaly, Mass, Pulsatile Mass, Splenomegaly, Tenderness, Tenderness, Epigastium Labs: CBC, BMP 04/14/17 10:00 04/14/17 10:00 INR, PTT INR 1.68 (0.82-1.09) H 04/14/17 10:00 Problem List - Problems (1) Hematemesis with nausea Assessment/Plan: R> tranfuse 3 units of PRBC and 2 units of FFP For EGD Code(s): K92.0 - HEMATEMESIS R11.0 - NAUSEA (2) Elevated liver enzymes Assessment/Plan: r/o secondary to drug toxicity and ischemia R> continue iv hydration discontinue Lipitor Code(s): R74.8 - ABNORMAL LEVELS OF OTHER SERUM ENZYMES
[2017-04-14] MEDS ORDERED: PROPOFOL 20 ML ONE ×2 (17:20)
[2017-04-14] MEDS ORDERED: SODIUM PHOSPHATE - 0 MM in DEXTROSE 5%-WATER - 250 ML IVPB ONE (18:14)
[2017-04-14] MEDS: LABETALOL HCL 100 MG TABLET (FP) PO SCH (21:23)
[2017-04-14 21:49] LABS: MCH 27.8 pg (25.7-33.7); MCHC 34.2 g/dl (32.0-35.9); MEAN CELL VOLUME 81.3 fl (80-96); MEAN PLT VOLUME 9.6 fl (7.5-11.1); PLATELET COUNT 119 K/MM3 (134-434); RDW 17.3 % (11.9-15.9); WHITE BLOOD COUNT 12.1 K/mm3 (4.0-10.0)
[2017-04-14] MEDS ORDERED: CHLORHEXIDINE GLUCONATE 4% CLEANSER FOR DECOLONIZATION TP SCH ×4 (22:00)
[2017-04-14] MEDS: MUPIROCIN 2% TOPICAL OINTMENT FOR DECOLONIZATION NS SCH (22:16)
[2017-04-15] MEDS: PANTOPRAZOLE SODIUM 80 MG in SODIUM CHLORIDE 100 ML IVPB SCH ×4 (01:58→12:47)
[2017-04-15] MEDS: LABETALOL HCL 100 MG TABLET (FP) PO SCH ×3 (06:00→21:48)
[2017-04-15 06:35] LABS: MCHC 34.7 g/dl (32.0-35.9); MEAN CELL VOLUME 80.9 fl (80-96); MEAN PLT VOLUME 9.7 fl (7.5-11.1); PLATELET COUNT 111 K/MM3 (134-434); RDW 17.3 % (11.9-15.9); WHITE BLOOD COUNT 10.3 K/mm3 (4.0-10.0)
[2017-04-15 07:06] LABS: ALBUMIN 2.6 g/dl (3.4-5.0); ANION GAP 6 (8-16); CALCIUM 7.8 mg/dL (8.5-10.1); CO2 28 mmol/L (21-32); GLUCOSE,RANDOM 102 mg/dL (74-106); SGOT/AST 145 U/L (15-37); SGPT/ALT 266 U/L (12-78)
[2017-04-15 07:08] LABS: ALK PHOS 64 U/L (45-117); CREATININE 1.5 mg/dL (0.7-1.3); TOT PROT 4.9 g/dl (6.4-8.2)
[2017-04-15 07:12] LABS: INR 1.3 (0.82-1.09); PROTHROMBIN TIME (PATIENT) 14.4 SEC (9.98-11.88)
[2017-04-15] MEDS ORDERED: PT OWN MED DRAWER 7, Y5N ONE (09:18)
[2017-04-15] MEDS: MUPIROCIN 2% TOPICAL OINTMENT FOR DECOLONIZATION NS SCH (09:21)
[2017-04-15] MEDS ORDERED: ISOSORBIDE MONONITRATE 30 MG TAB.SR.24H (FP) PO SCH (10:00)
--- NOTE | 2017-04-15 12:14 | PN ---
Physical Exam: SUBJECTIVE: Patient seen and examined. Tolerated EGD last night. No further bloody bm or vomiting. Events: - HTN this am, restarted home meds OBJECTIVE: Vital Signs Period Temp Pulse Resp BP Sys/Jaquez Pulse Ox Last 24 Hr 98.0 F-99.8 F 56-90 15-21 121-185/78-116 100-100 PE Neuro: alert, awake, cn 2-12intact Pulm: CTAB CV: s1 s2 rrr no mrg Abd: s nt nd +bs Ext: warm, well perfused, no le edema Laboratory Results - last 24 hr 04/14/17 04/14/17 04/14/17 08:45 10:00 21:10 WBC 12.1 H RBC 2.73 L D Hgb 7.6 L D Hct 22.2 L D MCV 81.3 MCH 27.8 MCHC 34.2 RDW 17.3 H Plt Count 119 L MPV 9.6 INR 1.68 H Sodium Potassium Chloride Carbon Dioxide Anion Gap BUN Creatinine Creat Clearance w eGFR Random Glucose Calcium Total Bilirubin AST ALT Alkaline Phosphatase Total Protein Albumin Hepatitis C Antibody <0.1 04/15/17 04/15/17 04/15/17 05:25 05:25 05:25 WBC 10.3 H RBC 2.79 L Hgb 7.8 L Hct 22.6 L MCV 80.9 MCH 28.0 MCHC 34.7 RDW 17.3 H Plt Count 111 L MPV 9.7 INR 1.30 H Sodium 144 Potassium 4.0 Chloride 110 H Carbon Dioxide 28 Anion Gap 6 L BUN 51 H D Creatinine 1.5 H Creat Clearance w eGFR 49.74 Random Glucose 102 D Calcium 7.8 L Total Bilirubin 1.0 D AST 145 H D ALT 266 H Alkaline Phosphatase 64 D Total Protein 4.9 L D Albumin 2.6 L D Hepatitis C Antibody Current Medications Generic Name Dose Route Start Last Admin Trade Name Freq PRN Reason Stop Dose Admin Chlorhexidine Gluconate 1 applic 04/15/17 22:00 Hibiclens For Decolonization - TP HS MARIA DOLORES Pantoprazole Sodium 40 mg/ 100 mls @ 200 mls/hr 04/15/17 22:00 Sodium Chloride IVPB BID MARIA DOLORES Isosorbide Mononitrate 30 mg 04/16/17 10:00 Imdur - PO DAILY MARIA DOLORES Labetalol HCl 100 mg 04/15/17 14:00 Normodyne - PO TID MARIA DOLORES Mupirocin 1 applic 04/15/17 22:00 Bactroban Ointment (For Decolonization) - NS 04/19/17 09:59 BID MARIA DOLORES Nifedipine 90 mg 04/16/17 10:00 Procardia Xl - PO DAILY MARIA DOLORES Assessment: 51 year old male with pmhx, HTN, HLD, CVA admitted with acute upper and lower GI bleed Plan: 1. Acute blood loss anemia d/t GI bleed - EGD shows uclers x2 - Stop ASA - Follow h pylori stool - Restart plavix in 7 days - Clear liquids - Change protonix to BID, then daily for 3 months on discharge - s/p 4UPRBC/2units ffp, 2uplatlets 04/14 2. HTN - Restart labetalol 100 TID - Imdur 30mg daily - Hold PIETER for MARIA TERESA 3. hx CVA - Left thalamic cva 2015 - Restart Plavix in 7 days - Stop ASA - Hold statin 4. Transaminitis - Possible due to shock liver/ischemia - Hold statin - Protonix BID - Trend CMP 5. MARIA TERESA - Like pre renal from blood loss/ATN - Cr w/mild improvement - Will start gentle fluids Visit type - Emergency Visit Emergency Visit: Yes ED Registration Date: 04/14/17 Care time: The patient presented to the Emergency Department on the above date and was hospitalized for further evaluation of their emergent condition. - New Patient This patient is new to me today: Yes Date on this admission: 04/15/17 - Critical Care Critical Care patient: No
--- NOTE | 2017-04-15 12:28 | PN ---
Teaching Attending Note Name of Resident: Tyler Byrd ATTENDING PHYSICIAN STATEMENT I saw and evaluated the patient. I reviewed the resident's note and discussed the case with the resident. I agree with the resident's findings and plan as documented. SUBJECTIVE: Pt seen and examined in the ICU. s/p EGD showing 2 antral ulcers. No further bleeding. No shortness of breath or chest pain. OBJECTIVE: Last Vital Signs Temp Pulse Resp BP Pulse Ox 98.7 F 69 19 147/90 100 04/15/17 12:00 04/15/17 12:00 04/15/17 12:00 04/15/17 12:00 04/15/17 10:27 Intake & Output 04/12/17 04/13/17 04/14/17 04/15/17 23:59 23:59 23:59 23:59 Intake Total 4634 410 Output Total 2422 2700 Balance 2209 -2290 Weight 154 lb 4.8 oz 152 lb 6.4 oz Gen: NAD at rest Heart: RRR Lung: decreased breath sounds at the bases Abd: soft, nontender Ext: no edema CBC, BMP 04/15/17 05:25 04/15/17 05:25 Active Medications Chlorhexidine Gluconate (Hibiclens For Decolonization -) 1 applic TP HS MARIA DOLORES Pantoprazole Sodium 40 mg/ (Sodium Chloride) 100 mls @ 200 mls/hr IVPB BID MARIA DOLORES Isosorbide Mononitrate (Imdur -) 30 mg PO DAILY MARIA DOLORES Labetalol HCl (Normodyne -) 100 mg PO TID MARIA DOLORES Mupirocin (Bactroban Ointment (For Decolonization) -) 1 applic NS BID MARIA DOLORES Stop: 04/19/17 09:59 Nifedipine (Procardia Xl -) 90 mg PO DAILY MARIA DOLORES ASSESSMENT AND PLAN: Upper GI Bleed Antral Ulcers Acute Blood Loss Anemia Syncope h/o CVA - transfuse PRBC - monitor H/H - protonix - PO when ok with GI - f/u pathology - resume all home BP meds - DVT prophylaxis - can monitor on floor critical care time spent in reviewing chart, evaluating patient and formulating plan 35 min
[2017-04-15] MEDS: SODIUM CHLORIDE 0.45% 1,000 ML IV SCH (12:50)
--- NOTE | 2017-04-15 14:58 | PN ---
Physical Exam: SUBJECTIVE: Patient seen and examined. No more bleeding events overnight. Patient states he is feeling much better today; denies chest pain, SOB, nausea or vomiting. OBJECTIVE: Vital Signs Temperature 98.8 F 04/15/17 13:00 Pulse Rate 64 04/15/17 13:00 Respiratory Rate 18 04/15/17 13:00 Blood Pressure 166/94 04/15/17 13:00 O2 Sat by Pulse Oximetry (%) 100 04/15/17 10:27 GENERAL: The patient is awake, alert, and fully oriented, in no acute distress. HEAD: Normal with no signs of trauma. EYES: extraocular movements intact, sclera anicteric, conjunctiva clear. No ptosis. ENT: Ears normal, nares patent, oropharynx clear without exudates, moist mucous membranes. NECK: Trachea midline, full range of motion, supple. LUNGS: Breath sounds equal, clear to auscultation bilaterally, no wheezes, no crackles, no accessory muscle use. HEART: Regular rate and rhythm, S1, S2 without murmur, rub or gallop. ABDOMEN: Soft, nontender, nondistended, normoactive bowel sounds, no guarding, no rebound. EXTREMITIES: 2+ pulses, warm, well-perfused, no edema. NEUROLOGICAL: Cranial nerves II through X grossly intact. Normal speech, gait not observed. PSYCH: Normal mood, normal affect. SKIN: Warm, dry, normal turgor, no rashes or lesions noted Laboratory Results - last 24 hr 04/14/17 04/14/17 04/14/17 08:45 10:00 21:10 WBC 12.1 H RBC 2.73 L D Hgb 7.6 L D Hct 22.2 L D MCV 81.3 MCH 27.8 MCHC 34.2 RDW 17.3 H Plt Count 119 L MPV 9.6 INR 1.68 H Sodium Potassium Chloride Carbon Dioxide Anion Gap BUN Creatinine Creat Clearance w eGFR Random Glucose Calcium Total Bilirubin AST ALT Alkaline Phosphatase Total Protein Albumin Hepatitis C Antibody <0.1 04/15/17 04/15/17 04/15/17 05:25 05:25 05:25 WBC 10.3 H RBC 2.79 L Hgb 7.8 L Hct 22.6 L MCV 80.9 MCH 28.0 MCHC 34.7 RDW 17.3 H Plt Count 111 L MPV 9.7 INR 1.30 H Sodium 144 Potassium 4.0 Chloride 110 H Carbon Dioxide 28 Anion Gap 6 L BUN 51 H D Creatinine 1.5 H Creat Clearance w eGFR 49.74 Random Glucose 102 D Calcium 7.8 L Total Bilirubin 1.0 D AST 145 H D ALT 266 H Alkaline Phosphatase 64 D Total Protein 4.9 L D Albumin 2.6 L D Hepatitis C Antibody Active Medications Generic Name Dose Route Start Last Admin Trade Name Freq PRN Reason Stop Dose Admin Pantoprazole Sodium 100 mls @ 200 mls/hr 04/15/17 22:00 Protonix 40mg Ivpb (Pre-Docked) IVPB BID MARIA DOLORES Sodium Chloride 1,000 mls @ 83 mls/hr 04/15/17 12:45 1/2 Normal Saline IV ASDIR MARIA DOLORES Isosorbide Mononitrate 30 mg 04/16/17 10:00 Imdur - PO DAILY MARIA DOLORES Labetalol HCl 100 mg 04/15/17 14:00 Normodyne - PO TID MARIA DOLORES Nifedipine 90 mg 04/16/17 10:00 Procardia Xl - PO DAILY MARIA DOLORES ASSESSMENT/PLAN: 42 year old male who with PMH of HTN, HLD, anemia, stroke, hemorrhoids who presented to the ED with nausea and vomiting of coffee ground emesis and melena. He has had two episodes of vomiting since admission and was transferred to the ICU for further management. Neuro -A&O x3 -Dizziness and lightheadedness 2/2 severe anemia Cardio -PMH HTN -restarted home cardio meds as patient is no longer NPO Abdominal -3 episodes coffee ground emesis and clots and 2x episodes of melena -H&H today is 7.8, trending up -will transfuse one more unit PRBCs -s/p 5 units PRBCs this admission -EGD shows two antral ulcers FEN -no indication for fluids at this time -no electrolyte abnormalities -Clear liquid diet Prophylaxsis -protonix 40 IV -SCDs for DVT Dispo -stable for transfer to floors Problem List - Problems (1) GI bleed Code(s): K92.2 - GASTROINTESTINAL HEMORRHAGE, UNSPECIFIED Qualifiers: GI bleed type/associated pathology: unspecified gastrointestinal hemorrhage type Qualified Code(s): K92.2 - Gastrointestinal hemorrhage, unspecified (2) Hypertension Code(s): I10 - ESSENTIAL (PRIMARY) HYPERTENSION Qualifiers: Hypertension type: essential hypertension Qualified Code(s): I10 - Essential (primary) hypertension (3) Hematemesis with nausea Code(s): K92.0 - HEMATEMESIS R11.0 - NAUSEA (4) Melena Code(s): K92.1 - MELENA Visit type - Emergency Visit Emergency Visit: Yes ED Registration Date: 04/14/17 Care time: The patient presented to the Emergency Department on the above date and was hospitalized for further evaluation of their emergent condition. - New Patient This patient is new to me today: No - Critical Care Critical Care patient: Yes Total Critical Care Time (in minutes): 35 Critical Care Statement: The care of this patient involved high complexity decision making to prevent further life threatening deterioration of the patient 's condition and/or to evalute & treat vital organ system(s) failure or risk of failure.
--- NOTE | 2017-04-15 19:00 | PN ---
GI Progress Note Subjective: no active bleding, tolerating solid food - Objective Vital Signs: Vital Signs Temperature 98.8 F 04/15/17 13:00 Pulse Rate 64 04/15/17 13:00 Respiratory Rate 18 04/15/17 13:00 Blood Pressure 166/94 04/15/17 13:00 O2 Sat by Pulse Oximetry (%) 100 04/15/17 10:27 Constitutional: Well Nourished Eyes: Yes: Conjunctiva Clear HENT: Yes: Atraumatic Neck: Yes: Supple Cardiovascular: Yes: Regular Rate and Rhythm Respiratory: Yes: CTA Bilaterally ...Palpate: Yes: Soft. No: Firm/Rigid, Guarding, Hepatomegaly, Mass, Pulsatile Mass, Splenomegaly, Tenderness Labs: CBC, BMP 04/15/17 05:25 04/15/17 05:25 INR, PTT INR 1.30 (0.82-1.09) H 04/15/17 05:25 Problem List - Problems (1) Hematemesis with nausea Assessment/Plan: ---resolved Code(s): K92.0 - HEMATEMESIS R11.0 - NAUSEA (2) Elevated liver enzymes Code(s): R74.8 - ABNORMAL LEVELS OF OTHER SERUM ENZYMES (3) Gastric ulcer Assessment/Plan: made aware to ff-up R> may give PLavix 75 mg daily in [address] Thorne upon patients discharge made aware to ffup EGD in 3 mos Protonix 40mg daily x 3 mos Code(s): K25.9 - GASTRIC ULCER, UNSP ACUTE OR CHRONIC, W/O HEMOR OR PERF
[2017-04-15] MEDS: PANTOPRAZOLE SODIUM 100 ML IVPB SCH (21:48)
[2017-04-15] MEDS: DOCUSATE SODIUM 100 MG CAPSULE (FP) PO SCH (21:48)
[2017-04-15] MEDS ORDERED: CHLORHEXIDINE GLUCONATE 4% CLEANSER FOR DECOLONIZATION TP SCH (22:00)
[2017-04-15] MEDS ORDERED: CARVEDILOL 25 MG TABLET (FP) PO SCH (22:00)
[2017-04-15] MEDS ORDERED: ATORVASTATIN CA 40 MG TABLET (FP) PO SCH (22:00)
[2017-04-15] MEDS ORDERED: MUPIROCIN 2% TOPICAL OINTMENT FOR DECOLONIZATION NS SCH (22:00)
[2017-04-16 00:10] LABS: HBeAG Negative (Negative); HEP B SURFACE AB Non Reactive (.); HEP BE AB Negative (Negative)
[2017-04-16] MEDS: LABETALOL HCL 100 MG TABLET (FP) PO SCH ×3 (06:56→22:32)
[2017-04-16] MEDS: SODIUM CHLORIDE 0.45% 1,000 ML IV SCH ×3 (06:57→23:00)
[2017-04-16 08:12] LABS: BASOPHIL 0.4 % (0-2.0); EOSINOPHIL 2.9 % (0-4.5); MCH 29.1 pg (25.7-33.7); MCHC 34.8 g/dl (32.0-35.9); MEAN CELL VOLUME 83.8 fl (80-96); MEAN PLT VOLUME 9.5 fl (7.5-11.1); NEUTROPHILS 66.4 % (42.8-82.8); PLATELET COUNT 115 K/MM3 (134-434); RDW 17.2 % (11.9-15.9); WHITE BLOOD COUNT 10.8 K/mm3 (4.0-10.0)
[2017-04-16 08:43] LABS: ALBUMIN 2.7 g/dl (3.4-5.0); ANION GAP 7 (8-16); CALCIUM 7.8 mg/dL (8.5-10.1); CO2 28 mmol/L (21-32); GLUCOSE,RANDOM 86 mg/dL (74-106)
[2017-04-16 08:48] LABS: ALK PHOS 65 U/L (45-117); BILIRUBIN,TOTAL 1.5 mg/dL (0.2-1.0); CREATININE 1.2 mg/dL (0.7-1.3); SGOT/AST 112 U/L (15-37); SGPT/ALT 235 U/L (12-78)
[2017-04-16] MEDS ORDERED: PT OWN MED DRAWER 7, Y5N ONE (09:36)
[2017-04-16] MEDS: ISOSORBIDE MONONITRATE 30 MG TAB.SR.24H (FP) PO SCH (09:38)
[2017-04-16] MEDS: PANTOPRAZOLE SODIUM 100 ML IVPB SCH (09:39)
[2017-04-16] MEDS: FERROUS SO4 325 MG TABLET (FP) PO SCH ×3 (09:40→17:16)
[2017-04-16] MEDS ORDERED: NIFEdipine E.R. 90 MG TABLET (FP) PO SCH (10:00)
[2017-04-16] MEDS ORDERED: RAMIPRIL 5 MG CAPSULE (FP) PO SCH (10:00)
--- NOTE | 2017-04-16 11:09 | PN ---
Progress Note (short form) - Note Progress Note: No occult bleeding overnight. Tolerating PO intake. No CP or SOB. Intake & Output 04/13/17 04/14/17 04/15/17 04/16/17 23:59 23:59 23:59 23:59 Intake Total 4634 1210 1154.5 Output Total 2425 3975 900 Balance 2209 -2765 254.5 Weight 154 lb 4.8 oz 152 lb 6.4 oz 146 lb 1 oz Last Vital Signs Temp Pulse Resp BP Pulse Ox 98.4 F 66 20 159/100 97 04/16/17 10:00 04/16/17 10:00 04/16/17 10:00 04/16/17 10:00 04/16/17 09:00 Active Medications Docusate Sodium (Colace -) 300 mg PO HS [facility] Last Admin: 04/15/17 21:48 Dose: 300 mg Ferrous Sulfate (Feosol -) 325 mg PO TIDCM [facility] Last Admin: 04/16/17 09:40 Dose: 325 mg Pantoprazole Sodium (Protonix 40mg Ivpb (Pre-Docked)) 100 mls @ 200 mls/hr IVPB BID [facility] Last Admin: 04/16/17 09:39 Dose: 200 mls/hr Sodium Chloride (1/2 Normal Saline) 1,000 mls @ 60 mls/hr IV ASDIR [facility] Isosorbide Mononitrate (Imdur -) 30 mg PO DAILY [facility] Last Admin: 04/16/17 09:38 Dose: 30 mg Labetalol HCl (Normodyne -) 100 mg PO TID [facility] Last Admin: 04/16/17 06:56 Dose: 100 mg Nifedipine (Procardia Xl -) 90 mg PO DAILY [facility] Gen: NAD at rest Heart: RRR Lung: decreased breath sounds at the bases Abd: soft, nontender Ext: no edema Laboratory Results - last 24 hr 04/14/17 04/14/17 04/16/17 03:25 08:45 05:40 WBC 10.8 H RBC 2.90 L Hgb 8.4 L Hct 24.3 L MCV 83.8 MCH 29.1 MCHC 34.8 RDW 17.2 H Plt Count 115 L MPV 9.5 Neutrophils % 66.4 Lymphocytes % 19.3 D Monocytes % 11.0 H Eosinophils % 2.9 D Basophils % 0.4 Sodium Potassium Chloride Carbon Dioxide Anion Gap BUN Creatinine Creat Clearance w eGFR Random Glucose Calcium Total Bilirubin AST ALT Alkaline Phosphatase Total Protein Albumin Hep Bs Antigen Negative Hep Bs Ab Concentration Non reactive Hep B Core Total Ab Negative Hep B Core IgM Ab Negative Hepatitis Be Antibody Negative Hepatitis Be Antigen Negative Hepatitis C Antibody <0.1 Blood Type O POSITIVE Antibody Screen Negative Crossmatch See Detail 04/16/17 05:40 WBC RBC Hgb Hct MCV MCH MCHC RDW Plt Count MPV Neutrophils % Lymphocytes % Monocytes % Eosinophils % Basophils % Sodium 144 Potassium 3.9 Chloride 109 H Carbon Dioxide 28 Anion Gap 7 L BUN 27 H D Creatinine 1.2 Creat Clearance w eGFR > 60 Random Glucose 86 Calcium 7.8 L Total Bilirubin 1.5 H D AST 112 H D ALT 235 H Alkaline Phosphatase 65 Total Protein 5.0 L Albumin 2.7 L Hep Bs Antigen Hep Bs Ab Concentration Hep B Core Total Ab Hep B Core IgM Ab Hepatitis Be Antibody Hepatitis Be Antigen Hepatitis C Antibody Blood Type Antibody Screen Crossmatch ASSESSMENT AND PLAN: Upper GI Bleed Antral Ulcers Acute Blood Loss Anemia Syncope h/o CVA - Normal transfusion thresholds - monitor H/H - protonix - PO as tolerated - Follow pathology - VTE prophylaxis Dr Andujar
[2017-04-16] MEDS: NIFEdipine E.R. 90 MG TABLET (FP) PO SCH (11:16)
--- NOTE | 2017-04-16 14:02 | PN ---
Physical Exam: SUBJECTIVE: Patient seen and examined. He is tolerating solid foods today, says he feels well. Hoping to go home. OBJECTIVE: Vital Signs Period Temp Pulse Resp BP Sys/Jaquez Pulse Ox Last 24 Hr 98 F-99.2 F 54-75 18-20 153-175/87-109 95-97 PE Neuro: alert, awake, cn 2-12intact Pulm: CTAB CV: s1 s2 rrr no mrg Abd: s nt nd +bs Ext: warm, no le edema Laboratory Results - last 24 hr 04/14/17 04/16/17 04/16/17 08:45 05:40 05:40 WBC 10.8 H RBC 2.90 L Hgb 8.4 L Hct 24.3 L MCV 83.8 MCH 29.1 MCHC 34.8 RDW 17.2 H Plt Count 115 L MPV 9.5 Neutrophils % 66.4 Lymphocytes % 19.3 D Monocytes % 11.0 H Eosinophils % 2.9 D Basophils % 0.4 Sodium 144 Potassium 3.9 Chloride 109 H Carbon Dioxide 28 Anion Gap 7 L BUN 27 H D Creatinine 1.2 Creat Clearance w eGFR > 60 Random Glucose 86 Calcium 7.8 L Total Bilirubin 1.5 H D AST 112 H D ALT 235 H Alkaline Phosphatase 65 Total Protein 5.0 L Albumin 2.7 L Hep Bs Antigen Negative Hep Bs Ab Concentration Non reactive Hep B Core Total Ab Negative Hep B Core IgM Ab Negative Hepatitis Be Antibody Negative Hepatitis Be Antigen Negative Hepatitis C Antibody <0.1 Active Medications Generic Name Dose Route Start Last Admin Trade Name Freq PRN Reason Stop Dose Admin Docusate Sodium 300 mg 04/15/17 22:00 04/15/17 21:48 Colace - PO 300 mg HS MARIA DOLORES Administration Ferrous Sulfate 325 mg 04/16/17 08:00 04/16/17 11:21 Feosol - PO 325 mg TIDCM MARIA DOLORES Administration Pantoprazole Sodium 100 mls @ 200 mls/hr 04/15/17 22:00 04/16/17 09:39 Protonix 40mg Ivpb (Pre-Docked) IVPB 200 mls/hr BID MARIA DOLORES Administration Sodium Chloride 1,000 mls @ 60 mls/hr 04/16/17 10:22 04/16/17 11:16 1/2 Normal Saline IV 60 mls/hr ASDIR MARIA DOLORES Administration Isosorbide Mononitrate 30 mg 04/16/17 10:00 04/16/17 09:38 Imdur - PO 30 mg DAILY MARIA DOLORES Administration Labetalol HCl 100 mg 04/15/17 14:00 04/16/17 13:34 Normodyne - PO 100 mg TID MARIA DOLORES Administration Nifedipine 90 mg 04/16/17 10:00 04/16/17 11:16 Procardia Xl - PO 90 mg DAILY MARIA DOLORES Administration Assessment: 51 year old male with pmhx HTN, HLD, CVA admitted with acute upper and lower GI bleed Plan: 1. Acute blood loss anemia d/t GI bleed - Bleeding resolved - Will need f/u and repeat EGD in 3 months - EGD 04/14 showed x2 ulcers - Restart Plavix in 1 week - Discontinue ASA - H pylori cx taken - Protonix daily 3 months on discharge - s/p 4UPRBC/2units ffp, 2uplatlets 04/14 2. HTN - Labetalol 100 TID - Imdur 30mg daily - Procardia 90mg daily - Restart PIETER tomorrow 3. hx CVA - Left thalamic cva 2015 - Restart Plavix in 7 days - Stop ASA - Hold statin 4. Transaminitis - Possible due to shock liver/ischemia - Improving - Hold statin - Protonix daily 5. MARIA TERESA - Improving - Decrease fluids 1/2ns 60cc Dispo: - Anticipate DC home tomorrow Visit type - Emergency Visit Emergency Visit: Yes ED Registration Date: 04/14/17 Care time: The patient presented to the Emergency Department on the above date and was hospitalized for further evaluation of their emergent condition. - New Patient This patient is new to me today: No - Critical Care Critical Care patient: No
[2017-04-16] MEDS: DOCUSATE SODIUM 100 MG CAPSULE (FP) PO SCH (22:32)
[2017-04-17] MEDS: LABETALOL HCL 100 MG TABLET (FP) PO SCH ×2 (06:20→13:16)
[2017-04-17] MEDS: FERROUS SO4 325 MG TABLET (FP) PO SCH ×2 (08:28→12:06)
[2017-04-17 09:04] LABS: ALBUMIN 2.7 g/dl (3.4-5.0); ANION GAP 7 (8-16); CALCIUM 8.1 mg/dL (8.5-10.1); CO2 26 mmol/L (21-32); GLUCOSE,RANDOM 87 mg/dL (74-106); SGOT/AST 110 U/L (15-37); SGPT/ALT 216 U/L (12-78)
[2017-04-17 09:07] LABS: ALK PHOS 79 U/L (45-117); BILIRUBIN,TOTAL 0.7 mg/dL (0.2-1.0); CREATININE 1.1 mg/dL (0.7-1.3); TOT PROT 5.3 g/dl (6.4-8.2)
[2017-04-17 09:27] LABS: BASOPHIL 0.4 % (0-2.0); EOSINOPHIL 3.3 % (0-4.5); MCH 28.9 pg (25.7-33.7); MCHC 34.1 g/dl (32.0-35.9); MEAN CELL VOLUME 84.7 fl (80-96); MEAN PLT VOLUME 9.6 fl (7.5-11.1); NEUTROPHILS 67.4 % (42.8-82.8); PLATELET COUNT 161 K/MM3 (134-434); RDW 17.5 % (11.9-15.9); WHITE BLOOD COUNT 9.4 K/mm3 (4.0-10.0)
[2017-04-17] MEDS ORDERED: PANTOPRAZOLE 40 MG TABLET (FP) PO SCH (10:00)
[2017-04-17] MEDS ORDERED: RAMIPRIL 20 MG PO SCH (10:00)
[2017-04-17] MEDS ORDERED: RAMIPRIL 5 MG CAPSULE (FP) PO SCH (10:00)
[2017-04-17] MEDS ORDERED: PT OWN MED DRAWER 7, Y5N ONE (10:35)
[2017-04-17] MEDS: ISOSORBIDE MONONITRATE 30 MG TAB.SR.24H (FP) PO SCH (10:37)
[2017-04-17] MEDS: NIFEdipine E.R. 90 MG TABLET (FP) PO SCH (10:38)
[2017-04-17] MEDS: SODIUM CHLORIDE 0.45% 1,000 ML IV SCH (10:38)
--- NOTE | 2017-04-17 15:19 | DS ---
Physical Examination Vital Signs: Vital Signs Temperature 98 F 04/17/17 08:30 Pulse Rate 74 04/17/17 08:30 Respiratory Rate 18 04/17/17 09:00 Blood Pressure 144/89 04/17/17 08:30 O2 Sat by Pulse Oximetry (%) 98 04/17/17 09:00 Labs: CBC, BMP 04/17/17 07:45 04/17/17 07:45 Discharge Summary Reason For Visit: GI BLEED Current Active Problems Elevated liver enzymes (Acute) GI bleed (Acute) Gastric ulcer (Acute) Hematemesis with nausea (Acute) Melena (Acute) Condition: Improved - Instructions Diet, Activity, Other Instructions: Please return to the ED with new, persistent, or worsening symptoms. Please follow-up with your providers as indicated. STOP TAKING YOUR ASPIRIN. You may start taking Plavix on 04/22/17 for stroke prevention. Do not take your Statin until you have your liver enzymes rechecked with Dr. Kevin and he states you may resume. Referrals: Antonio Kevin MD [Primary Care Provider] - (Please follow-up with your primary care provider within 2-3 days to have your LFTs rechecked) Jamari Benavides MD [Staff Physician] - (Please follow-up with GI within 1 week. You must schedule an apointment for a repeat endoscopy to be performed in 3 months. Continue taking Protonix 40mg daily for 3 months. ) Disposition: HOME - Home Medications Comprehensive Discharge Medication List: Ambulatory Orders Isosorbide Mononitrate [Imdur -] 30 mg PO DAILY #30 tab.sr.24h 06/24/16 Nifedipine ER [Procardia XL -] 90 mg PO DAILY #30 tab.er.24 06/24/16 Ramipril [Altace] 20 mg PO DAILY #60 capsule 06/24/16 Labetalol HCl 100 mg PO TID #90 tablet 07/25/16 Clopidogrel Bisulfate [Plavix -] 75 mg PO DAILY #30 tablet 04/17/17 Docusate Sodium [Colace -] 300 mg PO HS tab 04/17/17 Ferrous Sulfate [Feosol] 325 mg PO TIDCM #90 tab 04/17/17 Pantoprazole Sodium [Protonix -] 40 mg PO DAILY #90 tab 04/17/17
[2017-04-17 15:35] VITALS: BP 130/79; PULSE 76
[2017-04-17 15:38] VITALS: TEMP 98.6
== END 2017-04-17 16:49 | disposition home or self-care (01) | DRG 253 ==
LOC: JER 01:35 → JERBED 03:58 → UNDOADMIN 04:05 → JICU 05:15 → J5S 04-15 12:29
PROVIDERS: ADMIT Internal Medicine; ATTEND Registered Nurse
PROC: 30233K1 Transfusion of Nonautologous Frozen Plasma into Peripheral Vein, Percutaneous Approach (ICD-10-PCS; 2017-04-14)
PROC: 30233N1 Transfusion of Nonautologous Red Blood Cells into Peripheral Vein, Percutaneous Approach (ICD-10-PCS; 2017-04-14)
PROC: 0DJ08ZZ Inspection of Upper Intestinal Tract, Via Natural or Artificial Opening Endoscopic (ICD-10-PCS; principal; 2017-04-14 15:00)
DX: K92.2 Gastrointestinal hemorrhage, unspecified (principal); D62 Acute posthemorrhagic anemia; N17.9 Acute kidney failure, unspecified; I10 Essential (primary) hypertension; K92.0 Hematemesis; E78.00 Pure hypercholesterolemia, unspecified; K64.8 Other hemorrhoids; R74.0 Nonspecific elevation of levels of transaminase and lactic acid dehydrogenase [LDH]; K25.9 Gastric ulcer, unspecified as acute or chronic, without hemorrhage or perforation; J45.909 Unspecified asthma, uncomplicated; N28.9 Disorder of kidney and ureter, unspecified; Z86.73 Personal history of transient ischemic attack (TIA), and cerebral infarction without residual deficits
CPT/HCPCS: 36415; 36430; 71020-TC; 76705-TC; 80053; 82150; 82272; 82550; 82728; 83605; 84484; 85025; 85027; 85044; 85610; 85730; 86704; 86705; 86706; 86707; 86803; 86850; 86900; 86901; 86922; 87340; 87350; 93005; 93010; 99284-25; P9017; P9038; P9058